=== PATIENT | female | born 1980 | race Caucasian/White ===

== ENCOUNTER → 2017-03-04 | Outpatient (CLI) | payer OTHER ==
[2016-04-25 07:37] VITALS: BP 152/98
[~2017-03-04] MED LIST: NAPR500T PO
--- NOTE | 2017-03-04 14:24 | KCIC ---
Examination: Single frontal view the pelvis HISTORY: History of retained foreign body Comparison: None available FINDINGS: The bilateral femoral heads are within the acetabula. There is no acute fracture identified. Few calcified pelvic phleboliths identified. No evidence of radiopaque foreign body visualized the pelvis. IMPRESSION: 1. No evidence of radiopaque foreign body identified in the pelvis. Electronically signed by: Fortunato Salguero MD (03/04/2017 2:21 PM)
== END | disposition home or self-care (01) ==
LOC: KCIC 12:17
PROVIDERS: ATTEND Family Medicine
DX: Z18.9 Retained foreign body fragments, unspecified material (principal)
CPT/HCPCS: 72170

== ENCOUNTER → 2017-03-17 | Outpatient (CLI) | payer OTHER ==
[2016-04-25 07:37] VITALS: BP 152/98
[2017-03-17] MEDS: IOHEXOL 240 MG/ML 50ML VIAL. PO ONE (14:30)
[2017-03-17] MEDS: IOHEXOL 300 MG/ML 100ML VIAL. IV ONE (14:45)
--- NOTE | 2017-03-17 15:49 | KCIC ---
Examination: CT of the abdomen pelvis with oral and IV contrast HISTORY: History of retained foreign body from 30 years, difficulty with defecation. COMPARISON: None available. TECHNIQUE: Axial CT images of the abdomen pelvis were performed with oral and IV contrast. Coronal and sagittal reformats performed. Exposure: One or more of the following individualized dose reduction techniques were utilized for this examination: 1. Automated exposure control 2. Adjustment of the mA and/or kV according to patient size 3. Use of iterative reconstruction technique FINDINGS: The visualized bibasilar lungs grossly appears unremarkable. No evidence of free air identified in the abdomen. There is mild diffuse decreased attenuation noted throughout the liver likely hepatic steatosis. Small gallstones identified within the proximal gallbladder. The visualized spleen, adrenals grossly appears unremarkable. The visualized pancreas grossly appears unremarkable. The stomach is mildly distended. Small hiatal hernia is identified. Small bowel is nondilated. The appendix is normal. The cecum and ascending colon is mildly distended with fluid. Feces and gas noted in the transverse colon and the descending colon. No obvious radiopaque foreign body identified in the colon. Urinary bladder is mildly distended. Small amount of fluid identified in the endometrial. The caliber of the aorta grossly appears unremarkable. Bilaterally kidneys enhance symmetrically. The lumbar vertebral body heights are maintained. IMPRESSION: 1. Mild hepatic steatosis. 2. Gallstone identified within the proximal gallbladder. 3. Small hiatal hernia. 4. Mild fluid distended cecum and ascending colon, nonspecific, probably liquid stool. 5. No evidence of radiopaque foreign body identified. Electronically signed by: Fortunato Salguero MD (03/17/2017 3:46 PM) [id number]
== END | disposition home or self-care (01) ==
LOC: KCIC CT 12:59
PROVIDERS: ATTEND Obstetrics & Gynecology
DX: K80.20 Calculus of gallbladder without cholecystitis without obstruction (principal); K76.0 Fatty (change of) liver, not elsewhere classified; K44.9 Diaphragmatic hernia without obstruction or gangrene; N32.89 Other specified disorders of bladder
CPT/HCPCS: 74177; Q9966; Q9967

== ENCOUNTER 2017-04-13 19:19 | Emergency (ER) | payer OTHER ==
[2017-04-13 19:29] VITALS: BP 146/94
[2017-04-13] MEDS ORDERED: FAMO-63 PO (19:58)
[2017-04-13] MEDS ORDERED: PRED50TA PO (19:58)
[2017-04-13] MEDS ORDERED: DIPH25CA58 PO (19:58)
--- NOTE | 2017-04-13 19:59 | PHYS DOC ---
Past Medical History Past Medical History: Asthma, GERD, High Cholesterol, Hypertension, Hypothyroid , Other Past Surgical History: Other Additional Past Surgical Histo: splenectomy, R arm Alcohol Use: Occasionally Drug Use: Marijuana, Methamphetamine Adult General Chief Complaint Chief Complaint: INSECT BITE HPI HPI Patient is a 37 year old E male presents to the emergency department with a three-week history of rash. She states the only change that they've made is a new detergent. She has no complaints of shortness of breath, no fever. Review of Systems Review of Systems Constitutional: Denies fever or chills [] Eyes: Denies change in visual acuity, redness, or eye pain [] HENT: Denies nasal congestion or sore throat [] Respiratory: Denies cough or shortness of breath [] Cardiovascular: No additional information not addressed in HPI [] GI: Denies abdominal pain, nausea, vomiting, bloody stools or diarrhea [] : Denies dysuria or hematuria [] Musculoskeletal: Denies back pain or joint pain [] Integument: Rash Neurologic: Denies headache, focal weakness or sensory changes [] Endocrine: Denies polyuria or polydipsia [] Allergies Allergies Allergies Coded Allergies Type Severity Reaction Last Updated Verified No Known Drug Allergies 06/10/15 No Physical Exam Physical Exam Constitutional: Well developed, well nourished, no acute distress, non-toxic appearance. [] HENT: Normocephalic, atraumatic, bilateral external ears normal, oropharynx moist, no oral exudates, nose normal. [] Eyes: PERRLA, EOMI, conjunctiva normal, no discharge. [] Neck: Normal range of motion, no tenderness, supple, no stridor. [] Cardiovascular:Heart rate regular rhythm, no murmur [] Lungs & Thorax: Bilateral breath sounds clear to auscultation [] Abdomen: Bowel sounds normal, soft, no tenderness, no masses, no pulsatile masses. [] Skin: Diffuse papular rash, no vesicles or pustules. The rash is pink in color there is some scaling noted. It is pruritic. Back: No tenderness, no CVA tenderness. [] Extremities: No tenderness, no cyanosis, no clubbing, ROM intact, no edema. [] Neurologic: Alert and oriented X 3, normal motor function, normal sensory function, no focal deficits noted. [] Psychologic: Affect normal, judgement normal, mood normal. [] Current Patient Data Vital Signs Vital Signs Date Time Temp Pulse Resp B/P (MAP) Pulse Ox O2 Delivery O2 Flow Rate FiO2 04/13/17 19:29 98.2 104 17 96 Room Air 98.2 EKG EKG [] Radiology/Procedures Radiology/Procedures [] Course & Med Decision Making Course & Med Decision Making Pertinent Labs and Imaging studies reviewed. (See chart for details) [] Dragon Disclaimer Dragon Disclaimer This electronic medical record was generated, in whole or in part, using a voice recognition dictation system. Departure Departure Impression: Primary Impression: Dermatitis Disposition: HOME, SELF-CARE Condition: STABLE Referrals: Blanca CARL MD (PCP) Patient Instructions: Contact Dermatitis Scripts Famotidine (PEPCID) 20 Mg Tablet 20 MG PO HS, #15 TAB Prov: NIEVES KITCHEN APRN 04/13/17 Prednisone (PREDNISONE) 50 Mg Tablet 1 TAB PO DAILY, #5 TAB Prov: NIEVES KITCHEN APRN 04/13/17 Diphenhydramine Hcl (BENADRYL) 25 Mg Capsule 2 CAP PO QHS Y for itching, #60 CAP 2 Refills Prov: NIEVES KITCHEN APRN 04/13/17 NIEVES KITCHEN APRN Apr 13, 2017 19:59
== END 2017-04-13 20:05 | disposition home or self-care (01) ==
LOC: ER 19:19
DX: L30.9 Dermatitis, unspecified (principal); J45.909 Unspecified asthma, uncomplicated; K21.9 Gastro-esophageal reflux disease without esophagitis; E78.00 Pure hypercholesterolemia, unspecified; I10 Essential (primary) hypertension; E03.9 Hypothyroidism, unspecified; F15.10 Other stimulant abuse, uncomplicated; F12.10 Cannabis abuse, uncomplicated; Z90.81 Acquired absence of spleen
CPT/HCPCS: 99283

== ENCOUNTER → 2017-10-31 | Outpatient (CLI) | payer OTHER | END | disposition home or self-care (01) | LOC: ECHO 10:17 | DX: I11.9 Hypertensive heart disease without heart failure (principal); G45.9 Transient cerebral ischemic attack, unspecified | CPT/HCPCS: 93306 ==

== ENCOUNTER 2018-11-19 18:44 | Emergency (ER) | payer OTHER ==
[~2018-11-19] VITALS: Ht 157.5 cm; Wt 81.6 kg
[~2018-11-19 18:44] MED LIST changes: +DIPH25CA58 PO; +FAMO-63 PO; +NAPR-683 PO; -NAPR500T PO; +PRED50TA PO
[2018-11-19 19:12] VITALS: BP 153/95
[2018-11-19] MEDS ORDERED: AMOX875T PO (19:45)
[2018-11-19] MEDS ORDERED: NEOM10SO7 LEFT EAR (19:45)
--- NOTE | 2018-11-19 20:00 | PHYS DOC ---
Past Medical History Past Medical History: Asthma, GERD, High Cholesterol, Hypertension, Hypothyroid , Other Past Surgical History: Other Additional Past Surgical Histo: splenectomy, R arm Alcohol Use: Occasionally Drug Use: Marijuana, Methamphetamine Adult General Chief Complaint Chief Complaint: FOREIGNBODY EAR HPI HPI Patient is a 38 year old female who presents with chief complaint of felt like something is in the ear she thought her ear popping. No actual object when in his far she knows. Review of Systems Review of Systems She has had sinus issues no fever Allergies Allergies Allergies Coded Allergies Type Severity Reaction Last Updated Verified No Known Drug Allergies 06/10/15 No Physical Exam Physical Exam Constitutional: Well developed, well nourished, no acute distress, non-toxic appearance. [] HENT: Normocephalic, atraumatic, left TM there is otitis externa erythema of the ear canal as well as otitis media with bulging decreased light markings middle ear effusion erythema of the left tympanic membrane Eyes: PERRLA, EOMI, conjunctiva normal, no discharge. [] Neck: Normal range of motion, no tenderness, supple, no stridor. [] Pulmonary: Normal respiratory effort no increased work of breathing no obvious chest wall trauma Abdomen: Bowel sounds normal, soft, no tenderness, no masses, no pulsatile masses. [] Skin: Warm, dry, no erythema, no rash. [] Back: No tenderness, no CVA tenderness. [] Extremities: No tenderness, no cyanosis, no clubbing, ROM intact, no edema. [] Neurologic: Alert and oriented X 3, normal motor function, normal sensory function, no focal deficits noted. [] Psychologic: Affect is odd, judgement normal, mood normal. [] EKG EKG [] Radiology/Procedures Radiology/Procedures [] Course & Med Decision Making Course & Med Decision Making Pertinent Labs and Imaging studies reviewed. (See chart for details) []We'll give antibiotics oral for otitis media as well as drops for otitis externa return precautions discussed. Otis Disclaimer Otis Disclaimer This electronic medical record was generated, in whole or in part, using a voice recognition dictation system. Departure Departure Impression: Primary Impression: Otitis externa Additional Impression: Left otitis media Disposition: 01 HOME, SELF-CARE Condition: STABLE Patient Instructions: Otitis Media, Adult, [id number] Scripts Neomycin/Polymyxin B Sulf/Hc (IBTXRYOA-[id number]-UT EAR SOLN) 10 Ml Solution 4 DROP LEFT EAR TID, #1 MISC Prov: LYUDMILA YOUNG MD 11/19/18 Amoxicillin (AMOXICILLIN) 875 Mg Tablet 1 TAB PO BID, #20 TAB Prov: LYUDMILA YOUNG MD 11/19/18 Problem Qualifiers LYUDMILA YOUNG MD Nov 19, 2018 20:00
== END 2018-11-19 20:26 | disposition home or self-care (01) ==
LOC: ER 18:44
DX: H60.8X2 Other otitis externa, left ear (principal); H66.92 Otitis media, unspecified, left ear; J45.909 Unspecified asthma, uncomplicated; K21.9 Gastro-esophageal reflux disease without esophagitis; E78.00 Pure hypercholesterolemia, unspecified; I10 Essential (primary) hypertension; E03.9 Hypothyroidism, unspecified; Z90.81 Acquired absence of spleen
CPT/HCPCS: 99283